=== PATIENT | male | born 1995 | race Caucasian/White ===

== ENCOUNTER 2024-01-13 06:17 | Day surgery (SDC) | payer SELFPAY ==
[~2024-01-13] VITALS: Ht 165.1 cm; Wt 74.9 kg
[2024-01-13] VITALS (15 sets, daily range): BP systolic 128–158; BP diastolic 66–106
[~2024-01-13 06:17] MED LIST: ALBU90OI INH; DESV50 PO; ESCI10 PO
[2024-01-13] MEDS ORDERED: CeFAZolin Sodium 2,000 MG in NS 100 ML IV SCH (06:25)
[2024-01-13] MEDS ORDERED: Lactated Ringer's 1,000 ML IV SCH (06:25)
[2024-01-13] MEDS ORDERED: propofoL 20 ML IV ONE (06:56)
[2024-01-13] MEDS ORDERED: Lidocaine HCl 2% 20 ML MDV ONE (06:56)
--- NOTE | 2024-01-13 06:56 | NUR ---
Ambulatory in Day Surgery History, Chart, Medications and Allergies reviewed before start of procedure. Pre-Op teaching done. Pt verbalizes understanding. Patient States Post-Procedure ride home has been arranged.
[2024-01-13] MEDS ORDERED: FentaNYL Citrate 50 MCG/ML 2 ML Injection ONE ×4 (06:57→10:02)
[2024-01-13] MEDS ORDERED: Rocuronium Bromide 10 MG/ML 5ML Injection IV ONE ×5 (06:57→08:49)
[2024-01-13] MEDS ORDERED: Bupivacaine 0.5% HCl 5 MG/ML 30MLVIAL ONE ×2 (07:02→07:37)
[2024-01-13] MEDS ORDERED: Midazolam HCl 1MG / ML 2ML Vial IV SCH (07:05)
[2024-01-13] MEDS ORDERED: Lidocaine HCl 2% Jelly 120MG/6ML SYR (20MG PER ML) ONE (07:09)
[2024-01-13] MEDS ORDERED: Phenylephrine HCl 100 MCG/ML-NS 10MLSYR (1MG/10ML) ONE (07:43)
[2024-01-13] MEDS ORDERED: Dexamethasone Sod Phos 10 MG/ML 1ML VIAL ONE (07:45)
[2024-01-13] MEDS ORDERED: Ondansetron HCl 2 MG / ML 2ML Vial ONE (07:45)
[2024-01-13] MEDS ORDERED: Ondansetron HCl 2 MG / ML 2ML Vial IV PRN (08:05)
[2024-01-13] MEDS ORDERED: FentaNYL Citrate 50 MCG/ML 2 ML Injection IV PRN ×2 (08:05)
[2024-01-13] MEDS ORDERED: HYDROmorphone HCl/Pf 1MG SYR IV PRN (08:05)
[2024-01-13] MEDS ORDERED: Albuterol 2.5 MG/3 ML VIAL INH PRN (08:05)
[2024-01-13] MEDS ORDERED: Sugammadex Sodium 200 MG/2ML SDV (100 MG/ML) ONE (09:33)
[2024-01-13] MEDS ORDERED: Ketorolac Tromethamine 30mg Vial ONE (09:54)
[2024-01-13] MEDS ORDERED: Albuterol 2.5 MG/3 ML VIAL ONE (09:58)
[2024-01-13] MEDS ORDERED: OxyCODONE 5 mg/Acetamin 325 mg TABLET PO PRN (10:05)
--- NOTE | 2024-01-13 10:42 | NUR ---
PT TO DAY SURGERY STEP DOWN FROM PACU. PT HAS 3 ABD INCISIONS THAT ARE CLOSED WITH EXOFIN, THE RIGHT AND MIDDLE ARE C/D/I, THE LEFT HAS SCANT AMOUNT OF DRAINAGE. VSS. PT IS AWAKE, ALERT AND ORIENTED; ABLE TO MOVE SELF IN BED.
--- NOTE | 2024-01-13 10:52 | NUR ---
WATER AND CRACKERS GIVEN; TOLERATING WELL. INCISIONS ARE C/D/I WITH THE LEFT ONE BEING DRY AT THIS TIME.
--- NOTE | 2024-01-13 11:05 | NUR ---
ICE PACK TO ABD
--- NOTE | 2024-01-13 11:28 | NUR ---
Discharge instructions reviewed with patient. Patient verbalizes understanding. Copy given to patient to take home. Patient States Post-Procedure ride home has been arranged.
--- NOTE | 2024-01-13 11:42 | NUR ---
PT DESIRES TO GO HOME. Patient up to Ambulate independently. Gait steady. Up to void
--- NOTE | 2024-01-13 11:45 | NUR ---
Discharged via wheelchair to private car for ride home.
== END 2024-01-13 11:46 | disposition home or self-care (01) ==
LOC: ORSCMMR 06:17 → ORD 07:30 → ORSCMMR 11:46
DX: K40.00 Bilateral inguinal hernia, with obstruction, without gangrene, not specified as recurrent (principal); K41.00 Bilateral femoral hernia, with obstruction, without gangrene, not specified as recurrent; K66.0 Peritoneal adhesions (postprocedural) (postinfection); J45.909 Unspecified asthma, uncomplicated; F17.290 Nicotine dependence, other tobacco product, uncomplicated; Z79.899 Other long term (current) drug therapy
CPT/HCPCS: A9270; C1781; J0690; J1100; J1885; J2250; J2371; J2405; J2704; J3010; J7120

== ENCOUNTER → 2024-12-24 | Outpatient (CLI) | payer OTHER ==
[2024-12-24 15:39] LABS: BASOPHILS ABSOLUTE AUTO 0.03 K/mm3 (0.00-0.23); BASOPHILS PERCENT AUTO 1 % (0-2); EOSINOPHILS ABSOLUTE AUTO 0.17 K/mm3 (0.00-0.68); EOSINOPHILS PERCENT AUTO 4 % (0-6); Hemoglobin 16.4 g/dL (13.5-17.5); IMMATURE GRAN PERCENT AUTO 0 % (0-1); LYMPHOCYTES ABSOLUTE AUTO 1.41 K/mm3 (0.84-5.20); LYMPHOCYTES PERCENT AUTO 32 % (21-46); MONOCYTES PERCENT AUTO 7 % (4-13); Mean Corpuscular HGB 31.6 pg (26.0-34.0); Mean Corpuscular HGB Conc 35.7 g/dL (31.5-36.5); Mean Corpuscular Volume 89 fL (80-100); Mean Platelet Volume 10.6 fL (9.1-12.4); NEUTROPHILS ABSOLUTE AUTO 2.44 K/mm3 (1.96-9.15); NEUTROPHILS PERCENT AUTO 56 % (41-73); Platelet Count 198 K/mm3 (150-400); RDW Coefficient Variation 11.7 % (11.7-14.2); RDW Standard Deviation 37.4 fL (35.1-46.3); Red Blood Cell Count 5.19 M/mm3 (4.30-5.90); White Blood Cell Count 4.35 K/mm3 (4.00-11.30)
[2024-12-24 18:16] LABS: Alanine Aminotransfer (ALT/SGP 29 U/L (12-78); Albumin, Blood 4.1 g/dL (3.4-5.0); Albumin/Globulin Ratio 1.5 (0.8-1.8); Alk Phos 71 U/L (50-136); Anion Gap 8 mmol/L (3-11); Aspartate Aminotrans (AST/SGOT 13 U/L (12-37); Bilirubin, Total 0.3 mg/dL (0.1-1.0); Blood Urea Nitrogen 12 mg/dL (8-24); Bun/Creatinine Ratio 12.8 (12.0-20.0); CHOL/HDL RATIO 2.8; CO2, Blood 27 mmol/L (21-32); Calcium, Blood 9.3 mg/dL (8.5-10.1); Chloride, Blood 110 mmol/L (98-108); Cholesterol 145 mg/dL (50-200); Creatinine, Blood 0.94 mg/dL (0.60-1.20); Globulin, Blood 2.7 g/dL (2.2-4.0); Glomerular Filtration Rate 113 (60-); Glucose, Blood 86 mg/dL (70-99); HDL Cholesterol 52 mg/dL (>39); LDL/HDL RATIO 1.5; Low Density Lipoprotein Chol 79 mg/dL (0-110); Sodium, Blood 141 mmol/L (136-145); Thyroid Stimulating Hormone 0.385 uIU/mL (0.360-4.800); Total Protein, Blood 6.8 g/dL (6.4-8.2); Triglycerides 69 mg/dL (30-140); Very Low Density Lipoprot Chol 13 mg/dL (6-28)
[2024-12-26 12:09] LABS: HIV 1,2 COMBO ANTIGEN/ANTIBODY Negative (Negative)
== END ==
LOC: LAB SHORT 14:21 → LAB 14:21
PROVIDERS: Family Medicine
DX: Z11.4 Encounter for screening for human immunodeficiency virus [HIV] (principal); E78.49 Other hyperlipidemia; F41.1 Generalized anxiety disorder
CPT/HCPCS: 80053; 80061; 84443; 85025; 87389